=== PATIENT | male | born 1985 | race Caucasian/White ===

== ENCOUNTER 2016-11-17 15:10 | Emergency (ER) | payer BC ==
[2016-11-17 16:02] VITALS: BP 119/98
--- NOTE | 2016-11-17 16:56 | UC ---
Abdominal Pain Female HPI - HPI Summary HPI Summary: Pt presents with c/o of abdominal pain, nausea, fatigue, and possible exposure to "parasites" in water at job site in [place]. Pt denies, fever, chills, loose stools, constipation, or vomiting. Denies hx of IBS, crohns, colitis, diverticulitis. Pt does report that he has been taking Oral Ibuprofen X 1 week without drinking full glass of water or having food in his stomach prior to self medicating. Pt does report that stool this morning was dark in color, "maybe black". - History of Current Complaint Chief Complaint: UCGeneralIllness Stated Complaint: STOMACH ACHE/NAUSEOUS/FATIGUE Time Seen by Provider: 11/17/16 16:16 Hx Obtained From: Patient ?: No Onset/Duration: Gradual Onset, Lasting Days - 7 Timing: Constant Severity Initially: Mild Severity Currently: Mild Pain Intensity: 2 Pain Scale Used: 0-10 Numeric Location: Diffuse Radiates: No Character: Aching, Dull Aggravating Factor(s): Nothing Alleviating Factor(s): Nothing Associated Signs and Symptoms: Positive: Nausea, Other: - generalized abndominal discomfort, dark stool . Allergies/Adverse Reactions: Allergies Allergy/AdvReac Type Severity Reaction Status Date / Time pollen, hay Allergy Congestion Uncoded 11/17/16 15:55 PMH/Surg Hx/FS Hx/Imm Hx Previously Healthy: Yes GI/ History: Other - epididimytitis Other GI/ History: epididimytitis - Surgical History Surgical History: Yes Surgery Procedure, Year, and Place: vasectomy 2013 - Family History Known Family History: Positive: Cardiac Disease, Hypertension, Diabetes, Other - HERNIAS - Social History Occupation: Employed Full-time Lives: With Family Alcohol Use: Weekly Substance Use Type: None Smoking Status (MU): Smoker, Current Status Unknown Type: Smokeless Tobacco Amount Used/How Often: 1 can per day Length of Time of Smoking/Using Tobacco: started at age 19 Have You Smoked in the Last Year: Yes Review of Systems Constitutional: Negative Skin: Negative Eyes: Negative ENT: Negative Respiratory: Negative Cardiovascular: Negative Gastrointestinal: Abdominal Pain, Nausea, Other - dark stool, Genitourinary: Negative - of testicular swelling, Other Motor: Negative Neurovascular: Negative Musculoskeletal: Negative Neurological: Negative Psychological: Negative All Other Systems Reviewed And Are Negative: Yes Physical Exam Triage Information Reviewed: Yes Appearance: Well-Appearing Vital Signs: Initial Vital Signs Temp 98.4 F 11/17/16 15:56 Pulse 86 11/17/16 15:56 Resp 16 11/17/16 15:56 BP 119/98 11/17/16 15:56 Pulse Ox 97 11/17/16 15:56 Vital Signs Reviewed: Yes Eye Exam: Normal ENT Exam: Normal Neck exam: Normal Respiratory Exam: Normal Cardiovascular Exam: Normal Abdominal Exam: Normal Abdomen Description: Positive: Nontender, No Organomegaly, Soft Bowel Sounds: Positive: Present Musculoskeletal Exam: Normal Neurological Exam: Normal Psychological Exam: Normal Skin Exam: Normal Abd Pain Female Course/Dx - Course Course Of Treatment: I discussed with the patient the need to take OTC NSAIDS with full glass of water and/or food. Pt admits that he has been taking Ibuprofen without any fluis or food a "few" times prior to having current c/o of generalized abdominal discomfort and one "dark stool". I discussed with the patient the possibility of a gastric ulcer and the need to follow up with his PCP. Pt verbalized understanding and agreed to plan of care. I also discussed - Differential Dx/Diagnosis Differential Diagnosis: Irritable Bowel Syndrome Provider Diagnoses: Possible gastric ulcer secondary to NSAID use. abdominal pain Discharge - Discharge Plan Condition: Stable Disposition: HOME Prescriptions: Esomeprazole Magnesium [Nexium 24Hr] 20 mg PO DAILY #30 cap Patient Education Materials: Abdominal Pain (ED) Referrals: José Cesar MD [Medical Doctor] - Fernando Bravo DO [Doctor of Osteopathy] - Additional Instructions: Please follow up with your Urologist and establish care with a PCP for regular and routine health maintenance.
== END 2016-11-17 16:46 | disposition home or self-care (01) ==
LOC: UCCORT 15:10
DX: K58.9 Irritable bowel syndrome, unspecified (principal); F17.200 Nicotine dependence, unspecified, uncomplicated
CPT/HCPCS: 99212; G0463

== ENCOUNTER 2017-08-28 13:29 | Emergency (ER) | payer BC ==
[2017-08-28 14:05] VITALS: BP 155/88
--- NOTE | 2017-08-28 14:21 | UC ---
Hand/Wrist HPI - HPI Summary HPI Summary: pt hit a punching bag yesterday and got sudden pain in his R wrist and hand with some swelling. 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 no numb or weakness - History Of Current Complaint Chief Complaint: UCUpperExtremity Stated Complaint: (RT) HAND INJURY Time Seen by Provider: 08/28/17 14:15 Hx Obtained From: Patient Onset/Duration: Sudden Onset Pain Intensity: 7 Aggravating Factor(s): Movement Alleviating Factor(s): Nothing Associated Signs And Symptoms: Positive: Swelling. Negative: Fever, Weakness, Numbness/Tingling - Allergies/Home Medications Allergies/Adverse Reactions: Allergies Allergy/AdvReac Type Severity Reaction Status Date / Time pollen, hay Allergy Congestion Uncoded 08/28/17 14:00 Home Medications: Home Medications NK [No Home Medications Reported] 08/28/17 [History Confirmed 08/28/17] PMH/Surg Hx/FS Hx/Imm Hx - Additional Past Medical History Additional PMH: Fracture R 5th finger and L wrist - Surgical History Surgical History: Yes Surgery Procedure, Year, and Place: vasectomy 2013 - Family History Known Family History: Positive: Cardiac Disease, Hypertension, Diabetes, Other - HERNIAS - Social History Occupation: Employed Full-time Alcohol Use: Occasionally Substance Use Type: None Smoking Status (MU): Current Some Day Smoker Type: Cigarettes Amount Used/How Often: 1 can per day Length of Time of Smoking/Using Tobacco: 4 CIGS/DAY Have You Smoked in the Last Year: Yes - Immunization History Vaccination Up to Date: Yes Review of Systems Constitutional: Negative Skin: Negative Eyes: Negative ENT: Negative Respiratory: Negative Cardiovascular: Negative Gastrointestinal: Negative Genitourinary: Negative Motor: Negative Neurovascular: Negative Musculoskeletal: Other: - pain/swelling R wrist/hand Neurological: Negative Psychological: Negative Is Patient Immunocompromised?: No All Other Systems Reviewed And Are Negative: Yes Physical Exam Triage Information Reviewed: Yes Appearance: Well-Appearing Vital Signs: Initial Vital Signs Temp 99 F 08/28/17 14:00 Pulse 98 08/28/17 14:00 Resp 16 08/28/17 14:00 BP 155/88 08/28/17 14:00 Pulse Ox 100 08/28/17 14:00 Vital Signs Reviewed: Yes Eyes: Positive: Conjunctiva Clear ENT: Positive: Normal ENT inspection Neck: Positive: Supple, Nontender, No Lymphadenopathy Respiratory: Positive: Lungs clear, Normal breath sounds Cardiovascular: Positive: RRR, No Murmur Abdomen Description: Positive: Nontender, No Organomegaly, Soft Bowel Sounds: Positive: Present Musculoskeletal: Positive: Other: - RUE: shoulder, elbow are atraumatic. dorsal wrist and hand with tenderness and swelling. Snuff box non tender. Fingers have full s/v/m function(5th digit with chronic unchanged mild flexion). Neurological: Positive: Alert Psychological: Positive: Age Appropriate Behavior Skin Exam: Normal Diagnostics - Radiology No standard instances Xray Interpretation: No Acute Changes Hand/Wrist Course/Dx - Course Course Of Treatment: no fx/dislocation. no concern for infection. given discomfort and trouble with ged instructor, will refer to Dr Broderick and splint - Differential Dx/Diagnosis Provider Diagnoses: Contusion and sprain R wrist/hand Discharge - Sign-Out/Discharge Documenting (check all that apply): Discharge - Discharge Plan Condition: Stable Disposition: HOME Patient Education Materials: Hand Sprain (ED), Wrist Sprain (ED), Contusion in Adults (ED) Referrals: Dorothea Grimm PA [Primary Care Provider] - If Needed Khalida Broderick MD [Medical Doctor] - As Soon As Possible Additional Instructions: USE THE SPLINT UNTIL FOLLOW UP - Billing Disposition and Condition Condition: STABLE Disposition: HOME
--- NOTE | 2017-08-28 14:44 | RAD ---
HISTORY: Right hand and wrist pain, trauma COMPARISONS: None VIEWS: 7, Frontal, lateral, and oblique views of the right hand and wrist FINDINGS: BONE DENSITY: Normal. BONES: There is no displaced fracture. JOINTS: There is no arthropathy. ALIGNMENT: There is no dislocation. SOFT TISSUES: Unremarkable. OTHER FINDINGS: None. IMPRESSION: NO ACUTE OSSEOUS INJURY TO THE RIGHT HAND OR WRIST. IF SYMPTOMS PERSIST, RECOMMEND REPEAT IMAGING.
== END 2017-08-28 15:14 | disposition home or self-care (01) ==
LOC: UCCORT 13:29
DX: S63.501A Unspecified sprain of right wrist, initial encounter (principal); S63.91XA Sprain of unspecified part of right wrist and hand, initial encounter; S60.211A Contusion of right wrist, initial encounter; S60.221A Contusion of right hand, initial encounter; W22.8XXA Striking against or struck by other objects, initial encounter; Y92.9 Unspecified place or not applicable; F17.210 Nicotine dependence, cigarettes, uncomplicated
CPT/HCPCS: 99212; G0463

== ENCOUNTER 2018-06-23 14:17 | Emergency (ER) | payer BC ==
[2018-06-23 14:40] VITALS: BP 135/83
--- NOTE | 2018-06-23 14:49 | UC ---
UC General HPI - HPI Summary HPI Summary: pt was working out and doing a squat with 210# weights when he got sudden low back pain and "heard it pop" he is c/o ongoing pain in R low back. onset today. - History of Current Complaint Chief Complaint: UCBackPain Stated Complaint: LOWER BACK PAIN Time Seen by Provider: 06/23/18 14:42 Hx Obtained From: Patient Onset/Duration: Sudden Onset Timing: Constant Pain Intensity: 8 Aggravating: movement Associated Signs & Symptoms: Positive: Other - no saddle aesthesia, bowel/ bladder dysfunction or numb/weak extremities.. Negative: Abdominal Pain, Fever - Allergy/Home Medications Allergies/Adverse Reactions: Allergies Allergy/AdvReac Type Severity Reaction Status Date / Time pollen, hay Allergy Congestion Uncoded 06/23/18 14:40 PMH/Surg Hx/FS Hx/Imm Hx Previously Healthy: Yes - Surgical History Surgical History: Yes Surgery Procedure, Year, and Place: vasectomy 2013 - Family History Known Family History: Positive: Cardiac Disease, Hypertension, Diabetes, Other - HERNIAS - Social History Alcohol Use: Occasionally Substance Use Type: None Smoking Status (MU): Former Smoker Type: Cigarettes Amount Used/How Often: 1 can per day Length of Time of Smoking/Using Tobacco: 4 CIGS/DAY Have You Smoked in the Last Year: Yes - Immunization History Vaccination Up to Date: Yes Review of Systems All Other Systems Reviewed And Are Negative: Yes Constitutional: Positive: Negative Skin: Positive: Negative Eyes: Positive: Negative ENT: Positive: Negative Respiratory: Positive: Negative Cardiovascular: Positive: Negative Gastrointestinal: Positive: Negative Genitourinary: Positive: Negative Motor: Positive: Negative Neurovascular: Positive: Negative Neurological: Positive: Negative Psychological: Positive: Negative Physical Exam Triage Information Reviewed: Yes Appearance: Pain Distress Vital Signs: Initial Vital Signs Temp 97.8 F 06/23/18 14:36 Pulse 79 06/23/18 14:36 Resp 18 06/23/18 14:36 BP 135/83 06/23/18 14:36 Pulse Ox 98 06/23/18 14:36 Vital Signs Reviewed: Yes Eyes: Positive: Conjunctiva Clear ENT: Positive: Normal ENT inspection Neck: Positive: Supple, Nontender, No Lymphadenopathy, Other: - c-spine non tender Respiratory: Positive: Lungs clear, Normal breath sounds, No respiratory distress Cardiovascular: Positive: RRR, No Murmur Abdomen Description: Positive: Nontender, No Organomegaly, Soft. Negative: Distended, Guarding, Pulsatile Mass Bowel Sounds: Positive: Present Musculoskeletal: Positive: Other: - Back: no gross deformity, swelling or discoloration. non tender to palpation. limited ROM lumbar region due to R low back pain. heel/toe walks without difficulty. no saddle anesthesia. negative straight leg raises. 5/5 strength, 2+ reflexes and sensation intact x4. steady gait. Neurological: Positive: Alert Psychological: Positive: Age Appropriate Behavior Skin Exam: Normal Skin: Negative: Rashes Diagnostics - Radiology No standard instances Radiology Interpretation Completed By: Radiologist - LS spine=#. Negative for fracture or spondylolisthesis. #. Moderately severe L5-S1 disc space narrowing may be congenital or reflect degenerative spondylosis. Course/Dx - Differential Dx - Multi-Symptom Differential Diagnoses: Other - no concern for acute abdomen, infection or cauda equina. no fx on xray. - Diagnoses Provider Diagnosis: Low back pain Discharge - Sign-Out/Discharge Documenting (check all that apply): Patient Departure All imaging exams completed and their final reports reviewed: Yes - Discharge Plan Condition: Stable Disposition: HOME Prescriptions: Cyclobenzaprine TAB* [Flexeril 10 MG TAB*] 10 mg PO TID PRN #10 tab PRN Reason: Pain - Back methylPREDNISolone [Medrol Dosepak 4 MG*] 0 mg PO .SEE LEESA INSTRUCTION #1 tab Patient Education Materials: Acute Low Back Pain (ED) Forms: *Work Release Referrals: Dorothea Grimm PA [Primary Care Provider] - 3 Days - Billing Disposition and Condition Condition: STABLE Disposition: Home - Attestation Statements Provider Attestation: Per institutional requirements, I have reviewed the chart, however, I was not consulted specifically or made aware of this patient by the midlevel provider. I did not personally evaluate, interact with , or disposition this patient.
[2018-06-23] MEDS ORDERED: Ketorolac INJ* 60 MG/2 ML VIAL IM ONE (14:50)
[2018-06-23] MEDS ORDERED: Cyclobenzaprine TAB* 10 MG PO ONE (14:50)
== END 2018-06-23 15:53 | disposition home or self-care (01) ==
LOC: UCCORT 14:17
DX: M54.5 Low back pain (principal); Z91.048 Other nonmedicinal substance allergy status; Z87.891 Personal history of nicotine dependence
CPT/HCPCS: 72100; 96372; 99212; A9270-GY; G0463; J1885